=== PATIENT | female | born 1975 | race African-American/Black ===

== ENCOUNTER 2021-01-25 12:00 | Emergency (ER) | payer OTHER, SELFPAY ==
[2021-01-25] VITALS (27 sets, daily range): BP systolic 106–142; BP diastolic 57–82; PULSE 73–92; RESP 14–23; TEMP 36.4; O2SAT 95–100
--- NOTE | 2021-01-25 12:35 | ECG_ITS ---
Measurements Intervals [place] Rate: 80 P: 38 OR: 177 QRS: -12 QRSD: 126 T: -20 QT: 421 QTc: 488 Interpretive Statements SINUS RHYTHM DELAYED PRECORDIAL R/S TRANSITION POSSIBLE LEFT VENTRICULAR HYPERTROPHY MINIMAL Q WAVES- HIGH LATERAL LEADS BORDERLINE ST-T WAVE ABNORMALITY- DIFFUSE LEADS BASELINE ARTIFACT- I, II, III, AVR, AVL, AVF, V2-V6 BORDERLINE ECG Electronically Signed On 01-25-2021 13:05:56 DIRECTOR OF RESIDENTIAL SERVICES by Bijan Lizarraga D.O.
[2021-01-25 13:57] LABS: Basophils Percent Auto 0.4 % (0.2-1.2); Eosinophils Percent Auto 0.4 % (0-4.4); Hematocrit 31.6 % (37.0-47.0); Immature Granulocyte Absolute 0.04 K/mm3 (0.00-0.031); Immature Granulocyte Percent A 0.5 % (0-0.5); Lymphocytes Absolute Auto 1.53 K/mm3 (0.9-3.2); Mean Corpuscular HGB Conc 31.6 g/dl (32-36); Mean Corpuscular Hemoglobin 29.1 pg (26-34); Mean Corpuscular Volume 91.9 fl (80-100); Mean Platelet Volume 9.5 fl (7.4-10.4); Monocytes Absolute Auto 0.6 K/mm3 (0.1-0.6); Monocytes Percent Auto 7.2 % (2.6-8.5); Neutrophils Absolute Auto 6.3 K/mm3 (1.3-6.7); Neutrophils Percent Auto 73.5 % (45.5-73.1); Platelet Count Result 433 k/mm3 (150-375); Red Blood Count 3.44 M/mm3 (4.2-5.4); Red Cell Distribution Width 14.2 % (11.5-14.5); White Blood Count 8.5 K/mm3 (4.5-10.0)
[2021-01-25 14:13] LABS: Anion Gap 11 mmol/L (8-16); Blood Urea Nitrogen 6 mg/dL (7-17); Calcium 9.6 mg/dL (8.4-10.2); Carbon Dioxide 24 mmol/L (22-30); Chloride 98 mmol/L (98-107); Estimated CRCL calculation 165 ml/min; Estimated Glomerular Filt Rate > 60; Glucose 157 mg/dL (65-110); Sodium 133 mmol/L (137-145)
--- NOTE | 2021-01-25 14:15 | PC.NURSE ---
ns bolus infused. pt states is feeling much better. son at bedside.
[2021-01-25 14:49] LABS: SPREG INTERNAL CONTROL Positive; Serum Qual hCG Negative
[2021-01-25 15:12] LABS: NT Pro B Type Natriuretic Pept 12 pg/mL (5-100); Troponin I < 0.012 ng/mL (0.000-0.034)
[2021-01-25] MEDS: POTASSIUM CHLORIDE 20 MEQ PACKET (FOR LIQUID) 40 MEQ PO (16:36)
--- NOTE | 2021-01-25 16:39 | ED.DIZZY ---
HPI - Dizziness General Chief Complaint: Syncope Stated Complaint: syncopal Time Seen by Provider: 01/25/21 12:03 Source: patient Mode of arrival: EMS Limitations: no limitations History of Present Illness HPI Narrative: 46-year-old female Patient is a [facility] patient for rehabilitation after a very lengthy hospitalization over the last 2 to 3 months with Covid and a brief prior rehab stent elsewhere She is morbidly obese Today they were trying to do some exercises with her walking between parallel bars and she became lightheaded and syncopal/presyncopal and had to be lowered to the ground Mentation returned fairly quickly after that and currently she does not have any real complaints apart from her usual general weakness and general leg weakness Related Data Home Medications Medication Instructions Recorded Confirmed acetaminophen 650 mg PO Q6H PRN 01/12/21 01/12/21 amlodipine 10 mg PO DAILY 01/12/21 01/12/21 famotidine 20 mg PO Q12H 01/12/21 01/12/21 fluoxetine 20 mg PO HS 01/12/21 01/12/21 food supplemt, lactose-reduced 1 ea PO TIDWMEAL 01/12/21 01/12/21 [Ensure High Protein] hydrocodone-acetaminophen 1 tablet PO Q6H PRN 01/12/21 01/12/21 hydroxyzine HCl 50 mg PO Q6H PRN 01/12/21 01/12/21 insulin glargine [Lantus U-100 10 unit SUBCUT QPM 01/12/21 01/12/21 Insulin] insulin lispro [Humalog Pen] 0 sliding scale dose SUBCUT ACHS 01/12/21 01/12/21 polyethylene glycol 3350 17 g PO DAILY 01/12/21 01/12/21 senna-docusate sodium [Senna Plus 1 tablet PO Q12H 01/12/21 01/12/21 (senna-docusate)] tramadol 25 mg PO Q6H PRN 01/12/21 01/12/21 Allergies Allergy/AdvReac Type Severity Reaction Status Date / Time dexmedetomidine Allergy Unknown Verified 01/12/21 02:40 mayonnaise Allergy Unknown Verified 01/12/21 02:41 Review of Systems Review of Systems: All systems reviewed & are unremarkable except as noted in HPI and below Constitutional: Constitutional: Reports no additional constitutional complaints, Denies chills, Reports fatigue, Denies fever(s), Denies headache(s) and Reports weakness Eyes: Eyes: Reports no additional eye complaints and Denies change in vision ENT: Denies headache(s) and Denies sore throat Cardiovascular: Cardiovascular: Denies chest pain and Denies dyspnea Respiratory: Respiratory: Denies cough and Denies dyspnea Gastrointestinal: Gastrointestinal: Denies abdominal pain, Denies diarrhea and Denies vomiting Genitourinary: Genitourinary: Denies urinary frequency and Denies dysuria Musculoskeletal: Musculoskeletal: Denies deformity, Denies arthralgias, Denies joint swelling and Denies numbness Integumentary/Breasts: Skin/Breast: Denies rash and Denies wounds Neurologic: Denies headache(s), Denies focal weakness and Denies numbness Psychiatric: Psychiatric: Reports no additional psychiatric complaints Endocrine: Endocrine: Reports no additional endocrine complaints Hematologic/Lymphatic: Hematologic/Lymphatic: Reports no additional hematologic/lymphatic complaints Allergic/Immunologic: Allergic/Immunologic: Reports no additional allergic/immunologic complaints PMFSH Past Medical History Medical History Abdominal wall cellulitis Anemia ARDS (adult respiratory distress syndrome) COVID Depression Diabetes mellitus Diabetic neuropathy Hypertension Obesity Obstructive sleep apnea Protein calorie malnutrition Sepsis with critical illness myopathy Surgical History Surgical History Hx of tracheostomy Social History Social History Social History: patient has 4 daughters who live with her in a single-level home. With 5 steps to enter. Smoking status: Never smoker Second hand tobacco smoke exposure: No Exam Const: General: cooperative, no acute distress and alert Nutritional Appearance: obese Orientation/co
--- NOTE | 2021-01-25 19:20 | PC.NURSE ---
lorenzo has arrived
== END 2021-01-25 19:30 ==
PROVIDERS: Emergency Provider Emergency Medicine
DX: R55 Syncope and collapse (principal); R53.81 Other malaise; E66.01 Morbid (severe) obesity due to excess calories; Z68.42 Body mass index [BMI] 45.0-49.9, adult; Z86.16 Personal history of COVID-19; G47.33 Obstructive sleep apnea (adult) (pediatric); I10 Essential (primary) hypertension; E11.40 Type 2 diabetes mellitus with diabetic neuropathy, unspecified; F32.A Depression, unspecified; D64.9 Anemia, unspecified; Z79.4 Long term (current) use of insulin; R94.31 Abnormal electrocardiogram [ECG] [EKG]
CPT/HCPCS: 36415; 80048; 83735; 83880; 84484; 84703; 85025; 93005; 96365; 96366; 99284; A9270; J3480; J7060